=== PATIENT | female | born 1995 | race Caucasian/White ===

== ENCOUNTER 2017-03-30 06:48 | Inpatient (IN) ==
[2017-03-30] MEDS ORDERED: BUTORPHANOL 2 MG/ML VIAL IV PRN (08:02)
[2017-03-30] MEDS ORDERED: ONDANSETRON 4 MG/2 ML VIAL IV PRN ×2 (08:02→16:58)
[2017-03-30] MEDS ORDERED: BUTORPHANOL 1 MG/ML VIAL IV PRN (08:02)
[2017-03-30] MEDS ORDERED: CITRIC ACID/SODIUM CITRATE 30 ML UDCUP PO ONE (08:04)
[2017-03-30] MEDS ORDERED: FAMOTIDINE 20 MG/2 ML VIAL IV ONE (08:04)
[2017-03-30] MEDS ORDERED: LACTATED RINGERS 1,000 ML IV ONE (08:04)
[2017-03-30 08:22] LABS: Basophils % 0.2 % (0.0-0.8); Eosinophils # 0.1 10*3/uL (0.0-0.87); Hematocrit 33.7 VOL% (35.7-47.0); Hemoglobin 11.6 GM/DL (12.0-16.0); Immature Granulocytes % 0.3 %; Immature Granulocytes Absolute 0.03 #; Lymphocytes # 1.5 10*3/uL (1.4-4.0); Lymphocytes % 16.5 % (21.3-54.2); Mean Corpuscular HGB Conc 34.4 GM/DL (32-36); Mean Corpuscular Hemoglobin 32 PG (27-34); Mean Corpuscular Volume 91.6 FL (87-102); Mean Platelet Volume 11.3 FL (9.6-12.0); Monocytes # 0.5 10*3/uL (0.11-0.8); Monocytes % 5.5 % (1.7-12.7); Neutrophils # 7.1 10*3/uL (1.4-7.4); Neutrophils % 76.5 % (38.7-73.9); Platelet Count 181 T/CUMM (130-400); Red Blood Count 3.68 MC/CUMM (3.8-5.5); Red Cell Distribution Width 12.7 % (9.3-17.3); White Blood Count 9.3 T/CUMM (4-12)
[2017-03-30] MEDS ORDERED: OXYTOCIN/LR 20 UNIT/1,000 ML BAG IV SCH (08:30)
[2017-03-30] MEDS: LACTATED RINGERS 1,000 ML IV SCH ×2 (08:43→15:19)
[2017-03-30 09:03] LABS: Alanine Aminotransferase 13 U/L (13-56); Albumin 2.4 G/DL (3.4-5.0); Alkaline Phosphatase 128 U/L (45-117); Aspartate Amino Transferase 12 U/L (0-37); Bilirubin,Total < 0.39 MG/DL (0.2-1.0); Blood Urea Nitrogen 5 MG/DL (7-18); Calcium 8.8 MG/DL (8.5-10.1); Glucose 79 MG/DL (74-106); Osmolality,Calculated 272.5 MOS/KG (273-304); Potassium 3.5 MMOL/L (3.5-5.1); Sodium 139 MMOL/L (136-145); Total Protein 6.9 G/DL (6.4-8.3)
[2017-03-30] MEDS ORDERED: PROMETHAZINE 25 MG/1 ML VIAL IM ONE (09:10)
[2017-03-30] MEDS ORDERED: ONDANSETRON 4 MG/2 ML VIAL IV ONE (09:10)
[2017-03-30] MEDS ORDERED: ePHEDrine 50 MG/ML AMP IV PRN (09:10)
[2017-03-30] MEDS ORDERED: diphenhydrAMINE 50 MG/1 ML VIAL IV PRN (09:10)
[2017-03-30] MEDS ORDERED: hydrOXYzine HCL 25 MG/1 ML VIAL IM PRN (09:10)
[2017-03-30] MEDS ORDERED: fentaNYL 2 MCG/ROPIV 0.2% EPID 150 ML EPIDURAL SCH (09:30)
[2017-03-30] MEDS ORDERED: AMPICILLIN INJ 2,000 MG in SODIUM CHLORIDE 0.9% 50 ML IV ONE (12:07)
[2017-03-30] MEDS ORDERED: AMPICILLIN 2,000 MG VIAL ONE (12:14)
[2017-03-30] MEDS ORDERED: SODIUM CHLORIDE 0.9% 50 ML IV ONE (12:15)
[2017-03-30 13:17] LABS: Apearance,Urine CLEAR (Clear); Bacteria,Urine Occasional /HPF (Few); Bilirubin,Urine Negative (Negative); Blood, Urine Negative (Negative); Glucose,Urine (UA) Negative (Negative); Ketones,Urine 5 mg/dL (Negative); Nitrite,Urine Negative (Negative); Protein,Urine Negative; Urine Color Straw (Yellow); Urine Specific Gravity 1.004 (1.001-1.035); Urine Urobilinogen < 2.0 EU/DL (0.2-1.0); WBC,Urine <1 /HPF (0-6)
[2017-03-30] MEDS ORDERED: AMPICILLIN INJ 1,000 MG in SODIUM CHLORIDE 0.9% 50 ML IV SCH (16:00)
[2017-03-30] MEDS ORDERED: TERBUTALINE 1 MG/1 ML VIAL SUBCUT ONE ×2 (16:35→16:40)
[2017-03-30] MEDS ORDERED: ceFAZolin 2,000 MG in PREMIX 1 EACH IV ONE (16:40)
[2017-03-30] MEDS ORDERED: ROPIVACAINE 0.5% 30 ML VIAL ONE (16:46)
[2017-03-30] MEDS ORDERED: TISSUE ADHESIVE 1 EACH APPLICATOR TOP ONE (16:56)
[2017-03-30] MEDS ORDERED: MAGNESIUM HYDROXIDE SUSP 30 ML UDCUP PO PRN (16:58)
[2017-03-30] MEDS ORDERED: OXYTOCIN/LR 20 UNIT/1,000 ML BAG IV ONE (16:58)
[2017-03-30] MEDS ORDERED: RHO(D) IMMUNE GLOBULIN 300 MCG SYRINGE IM ONE (16:58)
[2017-03-30] MEDS ORDERED: ACETAMINOPHEN 325 MG TABLET PO PRN ×2 (16:58→21:59)
[2017-03-30] MEDS ORDERED: LACTATED RINGERS 1,000 ML IV SCH (17:00)
[2017-03-30] MEDS ORDERED: METHYLERGONOVINE 0.2 MG/1 ML AMP ONE (17:19)
[2017-03-30 18:04] LABS: Cord Arterial Blood HCO3 22.8 MMOL/L
[2017-03-30 18:09] LABS: Cord Venous Blood PCO2 51.8 MMHG; Cord Venous Blood PO2 20.6 MMHG
[2017-03-30] MEDS ORDERED: HYDROmorphone 2 MG/1 ML VIAL IV ONE (19:45)
[2017-03-30] MEDS ORDERED: HYDROmorphone PCA 30 MG/30 ML SYRINGE IV SCH (20:00)
[2017-03-30] MEDS ORDERED: HYDROmorphone 2 MG/1 ML VIAL ONE (20:11)
[2017-03-30] MEDS: diphenhydrAMINE 50 MG/1 ML VIAL IV PRN (20:51)
[2017-03-30] MEDS: KETOROLAC 30 MG/1 ML VIAL IV PRN (22:23)
[2017-03-30] MEDS: DOCUSATE SODIUM 100 MG CAPSULE PO SCH (23:41)
[2017-03-31] MEDS: ceFAZolin 1,000 MG in SYRINGE 1 EACH IV SCH ×2 (00:50→08:14)
[2017-03-31] MEDS: KETOROLAC 30 MG/1 ML VIAL IV PRN ×3 (04:10→16:23)
[2017-03-31 05:58] LABS: Basophils % 0.2 % (0.0-0.8); Eosinophils % 0.3 % (0.00-10.9); Hematocrit 28.4 VOL% (35.7-47.0); Immature Granulocytes % 0.4 %; Immature Granulocytes Absolute 0.04 #; Lymphocytes # 1.1 10*3/uL (1.4-4.0); Lymphocytes % 10.4 % (21.3-54.2); Mean Corpuscular HGB Conc 35.2 GM/DL (32-36); Mean Corpuscular Hemoglobin 32 PG (27-34); Mean Corpuscular Volume 89.6 FL (87-102); Mean Platelet Volume 11.8 FL (9.6-12.0); Monocytes # 0.6 10*3/uL (0.11-0.8); Monocytes % 5.4 % (1.7-12.7); Neutrophils # 9.1 10*3/uL (1.4-7.4); Neutrophils % 83.3 % (38.7-73.9); Platelet Count 144 T/CUMM (130-400); Red Blood Count 3.17 MC/CUMM (3.8-5.5); Red Cell Distribution Width 12.7 % (9.3-17.3); White Blood Count 10.9 T/CUMM (4-12)
[2017-03-31] MEDS: SIMETHICONE CHEW 80 MG TABLET PO PRN ×3 (06:55→20:59)
[2017-03-31] MEDS: MULTIVITAMIN (PRENATAL) TABLET PO SCH (08:10)
[2017-03-31] MEDS: DOCUSATE SODIUM 100 MG CAPSULE PO SCH ×2 (08:10→20:59)
[2017-03-31] MEDS: IBUPROFEN 800 MG TABLET PO PRN (08:10)
[2017-03-31] MEDS: METOCLOPRAMIDE 10 MG/2 ML VIAL IV SCH ×2 (10:58→18:28)
[2017-03-31] MEDS: MAGNESIUM HYDROXIDE SUSP 30 ML UDCUP PO PRN ×2 (10:58→18:29)
[2017-03-31] MEDS: BISACODYL 10 MG SUPP RECTAL PRN (18:28)
[2017-03-31] MEDS ORDERED: oxyCODONE/ACETAMINOPHEN 5-325 MG TABLET PO PRN (20:29)
[2017-03-31] MEDS: oxyCODONE/ACETAMINOPHEN 5-325 MG TABLET PO PRN (21:00)
[2017-03-31] MEDS: diphenhydrAMINE 50 MG/1 ML VIAL IV PRN (21:51)
[2017-04-01] MEDS: IBUPROFEN 800 MG TABLET PO PRN (01:13)
[2017-04-01] MEDS: SIMETHICONE CHEW 80 MG TABLET PO PRN ×2 (01:13→09:44)
[2017-04-01] MEDS: oxyCODONE/ACETAMINOPHEN 5-325 MG TABLET PO PRN ×2 (03:44→09:54)
[2017-04-01 08:35] VITALS: BP 127/79
[2017-04-01] MEDS: DOCUSATE SODIUM 100 MG CAPSULE PO SCH (09:44)
[2017-04-01] MEDS: MULTIVITAMIN (PRENATAL) TABLET PO SCH (09:44)
[2017-04-01] MEDS: BISACODYL 10 MG SUPP RECTAL PRN (09:45)
[2017-04-01] MEDS ORDERED: DIPH/TET/ACEL PERT BOOSTER VACCINE 0.5 ML VIAL IM ONE (12:00)
== END 2017-04-01 14:30 | disposition home or self-care (01) | DRG 766 ==
LOC: N.LDOUT 06:48 → N.LD 06:49 → N.OB 21:25
PROVIDERS: ADMIT Obstetrics & Gynecology; ATTEND Specialist
PROC: LDCSECT (ICD-10-PCS; 2017-03-30 16:30)